=== PATIENT | female | born 1970 | race Caucasian/White ===

== ENCOUNTER → 2020-02-11 11:58 | Outpatient (CLI) | payer OTHER, SELFPAY ==
[2020-02-12] LABS: COVID19 Sendout Not Detected (Not Detect)
== END ==
PROVIDERS: Visit Provider Registered Nurse
DX: R68.89 Other general symptoms and signs (principal)
CPT/HCPCS: 87635

== ENCOUNTER 2020-03-18 05:17 | Emergency (ER) | payer OTHER, SELFPAY ==
[2020-03-18 05:23] VITALS: BP 141/81; PULSE 93; RESP 32; O2SAT 100
[2020-03-18 05:25] VITALS: BP 144/99; PULSE 93; RESP 25; TEMP 36.1; O2SAT 100; BMI 27.3
[2020-03-18 05:30] VITALS: BP 137/84; PULSE 98; RESP 21; O2SAT 100
--- NOTE | 2020-03-18 05:31 | DI.RAD.S_ITS ---
PROCEDURE: XR CHEST 1V INDICATIONS: STEMI TECHNIQUE: One view of the chest was acquired. COMPARISON: None. FINDINGS: Surgical changes and devices: None. Lungs and pleura: Lungs are slightly edematous. No pleural effusions or pneumothorax. Mediastinum: Mediastinal contours appear normal. Heart size is globally enlarged. Bones and chest wall: No suspicious bony lesions. Overlying soft tissues appear unremarkable. IMPRESSION: Slight pulmonary edema pattern with global cardiomegaly mild in overall severity. Dictated by: Nima Edge M.D. on 03/18/2020 at 8:12 Approved by: Nima Edge M.D. on 03/18/2020 at 8:12
[2020-03-18] MEDS: ASPIRIN 81 MG CHEW TAB 324 MG (05:35)
[2020-03-18 05:42] LABS: Hematocrit 44.5 % (36-46); Hemoglobin 15.2 g/dL (12.0-16.0); Mean Corpuscular HGB Conc 34.1 % (30-36)
[2020-03-18] MEDS: NITROGLYCERIN 0.4 MG SL TAB SL ×2 (05:44→05:45)
--- NOTE | 2020-03-18 05:44 | ED_ITS ---
HPI - Chest Pain General Chief Complaint: Chest Pain Stated Complaint: chest hurts difficulty breathing Time Seen by Provider: 03/18/20 05:23 History of Present Illness HPI narrative: 49-year-old woman with no prior significant medical history presents with acute onset chest pain starting at 5:00 a.m. waking her from sleep described as central chest radiating up both sides of her neck causing significant dyspnea and some epigastric pain as well. She had an episode of chest pain while she was shopping last night at about 10:00 p.m. that felt like ?a huge hot flash also associated with moderate dyspnea but went away spontaneously. She has been in her usual state of good health until the episode started. There has been no obvious Covid exposures, no fevers, cough, chills, dyspnea, exertional dyspnea, orthopnea, vomiting, nausea, diarrhea. Of note significant family history of heart disease in her mother's family. Her mother had heart issues in her early 50s and all of for greater than 10 siblings did as well. Patient is a smoker. Related Data Allergies Allergy/AdvReac Type Severity Reaction Status Date / Time cefaclor [CEFACLOR] Allergy Unknown go russel Verified 02/11/20 11:46 Review of Systems Review of Systems Narrative: Pertinent positive and negative findings as per HPI Remainder of review of systems is otherwise unremarkable for Constitutional: Fevers, chills, weakness ENT: No sore throat, neck pain, ear pain CV: Chest pain, palpitations, dyspnea on exertion Respiratory: Cough, wheeze, dyspnea GI: Nausea, vomiting, diarrhea, change in bowel habits, black or bloody stools : Dysuria, hematuria, flank pain MS: Muscle weakness, numbness, joint swelling or warmth Skin: Rashes, nonhealing lesions Neuro: Syncope, dizziness, tingling Psych: Depression, anxiety, suicidal ideation Patient History Social History Smoking Status: Current every day smoker Smoking Status: Current every day smoker Exam Narrative Exam Narrative: General: Healthy appearing, anxious, tachypneic, pale but no diaphoresis. Able to give a complete and coherent history, speaking in full sentences. Well-nourished well-developed HEENT: Moist mucous membranes, normal sclera with reactive pupils, Neck: No JVD, supple Respiratory: Lungs are clear to auscultation, no wheezing no rales no rhonchi. Full and symmetrical air movement Cardiac: Regular rate and rhythm no murmurs no bruits Abdomen: Soft nontender good bowel tones, no flank pain Skin: Warm and dry, no rashes Neurologic: Grossly neurologically intact with no obvious asymmetries or abnormalities Extremities: No trauma, well perfused Psych: Cooperative, appropriate insight and affect Initial Vital Signs Initial Vital Signs: Vital Signs Pulse Rate 93 H 03/18/20 05:23 Respiratory Rate 32 H 03/18/20 05:23 Blood Pressure 141/81 H 03/18/20 05:23 Pulse Oximetry 100 03/18/20 05:23 Course Orders Ordered: ED Orders 03/18/20 05:25 EKG-12 Lead Routine 03/18/20 05:30 Complete Blood Count AUTO DIFF Stat Comprehensive Metabolic Panel Stat Troponin & CK Cardiac Panel Stat 03/18/20 05:31 XR chest 1V Stat Discontinued Medications Aspirin (Aspirin Chew) 324 mg PO NOW ONE Stop: 03/18/20 05:32 Last Admin: 03/18/20 05:52 Dose: Not Given Documented by: NUNO Heparin Sodium (Porcine) (Heparin) 5,000 unit IV NOW ONE Stop: 03/18/20 05:36 Last Admin: 03/18/20 05:47 Dose: 5,000 unit Documented by: NUNO Heparin Sodium/Dextrose (Heparin Drip) 25,000 unit in 500 mls @ 15.785 mls/hr IV CONT LUCI; Protocol Sodium Chloride (Normal Saline 0.9%) 1,000 mls @ 1,000 mls/hr IV BOLUS ONE Stop: 03/18/20 06:57 Last Infusion: 03/18/20 05:55 Dose: 1,000 mls/hr Documented by: Admin: 03/18/20 05:50 Dose: 1,000 mls/hr Documented by: NUNO Metoprolol Tartrate (Lopressor) 5 mg IV Q5M LUCI Stop: 03/18/20 05:56 Last Admin: 03/18/20 05:58 Dose: Not Given Documented by: NUNO Nitroglycerin (Nitrostat) 0.4 mg SL [id number] PRN PRN Reason: Chest Pain Last Admin: 03/18/20 05:45 Dose: 0.4 mg Documented by: NUNO Vital Signs Vital signs: Vital Signs - 8 hr 03/18/20 05:23 03/18/20 05:25 03/18/20 05:30 Temperature 97.0 F L Pulse Rate 93 H 93 H 98 H Respiratory Rate 32 H 25 H 21 Blood Pressure 144/99 H Blood Pressure [Right Arm] 141/81 H 137/84 Pulse Oximetry 100 100 100 03/18/20 06:05 Temperature Pulse Rate 98 H Respiratory Rate 25 H Blood Pressure 126/86 Blood Pressure [Right Arm] Pulse Oximetry 100 MDM - Chest Pain Medical Records Data Attestation: I reviewed the patient's medical records. Lab Data Attestation: I reviewed the patient's lab results. Lab results narrative: Troponin elevated at 0.065 Covid negative Result diagrams: 03/18/20 05:30 03/18/20 05:30 Labs: Lab Results 03/18/20 03/18/20 03/18/20 Range/Units 05:30 05:30 05:45 WBC 10.4 (4.5-11.0) X10^3/uL RBC 5.04 (4.0-5.2) X10^6/uL Hgb 15.2 (12.0-16.0) g/dL Hct 44.5 (36-46) % MCV 88.3 (80-100) fL MCH 30.1 (26-34) PG MCHC 34.1 (30-36) % RDW 14.0 (11.6-14.8) % Plt Count 312 (150-400) X10^3/uL Neut % (Auto) 46.0 L (50-75) % Lymph % (Auto) 42.7 H (25-40) % [place] % (Auto) 7.4 (3-14) % Eos % (Auto) 2.5 (2-4) % Baso % (Auto) 1.4 (0-2) % Neut # (Auto) 4800 (2081-8006) /uL Lymph # (Auto) 4400 (0121-9449) /uL [place] # (Auto) 800 (0-900) /uL Eos # (Auto) 300 (0-450) /uL Baso # (Auto) 100 (0-100) /uL Sodium 138 (137-145) mmol/L Potassium 4.0 (3.4-5.1) mmol/L Chloride 106 (98-107) mmol/L Carbon Dioxide 22 (22-32) mmol/L BUN 17 (7-17) mg/dL Creatinine 0.89 (0.52-1.04) mg/dL Estimated GFR > 60.0 (>60) mL/min BUN/Creatinine Ratio 19.1 (6-22) Glucose 153 H (70-100) mg/dL Calcium 9.6 (8.4-10.2) mg/dL Total Bilirubin 0.7 (0.2-1.3) mg/dL AST 41 H (14-36) IU/L ALT 26 (<35) IU/L Alkaline Phosphatase 90 (38-126) U/L Total Creatine Kinase 54 (30-135) U/L CK-MB (CK-2) TNP CK-MB (CK-2) Rel Index TNP Troponin I 0.065 H (0.01-0.034) ng/mL Total Protein 8.3 H (6.3-8.2) g/dL Albumin 4.4 (3.5-5.0) g/dL Globulin 3.9 (1.7-4.1) g/dL Albumin/Globulin Ratio 1.1 (1.0-2.8) COVID-19 PCR Negative (Negative) Imaging Data Chest x-ray: Attestation: I personally reviewed and interpreted this imaging study as follows: My Impression: Cardiomegaly Normal mediastinum No pneumothorax No consolidated findings or infiltrates ECG Data Attestation: I personally reviewed and interpreted this ECG as follows: Interpretation: Sinus rhythm at a rate of 92 Normal axis partial LBBB ST-elevation in V1 V2 V3, flipped T-waves V5 V6 consistent with anteroseptal STEMI no prior for comparison MDM Narrative Medical decision making narrative: 49-year-old woman presents with acute chest pain, dyspnea, 8/10 chest pain. EKG is consistent with the anterior septal MN as is history and clinical presentation. 530 STEMI protocols are activated. 533 EMS is contacted. 534 [facility] is notified of transport. Initial nitro brings her pain from an 8 to a to and 2nd nitro completely alleviates her pain. Dyspnea is also completely alleviated. Rapid Covid test is done. Heparin bolus and heparin drip are initiated. 555 Patient is alert oriented and hemodynamically stable at time of transport 607 Care reviewed with accepting ER doc, Nahun, at [facility] Critical Care Time Critical Care Time Critical Care Time: Yes Total Critical Care Time: 32 Attestation: Critical care time is separate from other billable procedures. This critical care time includes consultation with family and other consulting doctors, review of records, and interpretation of data from labs, EKGs and imaging as well as managements of acute STEMI Discharge Plan Departure Patient Disposition: [facility] Clinical Impression: ST elevation myocardial infarction (STEMI) Qualifiers: Involved coronary artery: unspecified coronary artery Qualified Code(s): I21.3 - ST elevation (STEMI) myocardial infarction of unspecified site Discharge Date/Time: 03/18/20 06:05
[2020-03-18 05:47] LABS: Add Manual Diff / Slide Review NO; Alanine Aminotransferase 26 IU/L (<35); Albumin 4.4 g/dL (3.5-5.0); Albumin Globulin Ratio 1.1 (1.0-2.8); Alkaline Phosphatase 90 U/L (38-126); Aspartate Aminotransferase 41 IU/L (14-36); BUN Creatinine Ratio 19.1 (6-22); Basophils Absolute Auto 100 /uL (0-100); Basophils Percent Auto 1.4 % (0-2); Bilirubin Total 0.7 mg/dL (0.2-1.3); Blood Urea Nitrogen 17 mg/dL (7-17); Calcium 9.6 mg/dL (8.4-10.2); Carbon Dioxide 22 mmol/L (22-32); Chloride 106 mmol/L (98-107); Creatine Kinase 54 U/L (30-135); Eosinophils Absolute Auto 300 /uL (0-450); Eosinophils Percent Auto 2.5 % (2-4); Estimated Glomerular Filt Rate > 60.0 mL/min (>60); Globulin 3.9 g/dL (1.7-4.1); Glucose 153 mg/dL (70-100); HEMOLYSIS < 15 (0-50); Lymphocytes Absolute Auto 4400 /uL (1100-4500); Lymphocytes Percent Auto 42.7 % (25-40); Mean Corpuscular Hemoglobin 30.1 PG (26-34); Mean Corpuscular Volume 88.3 fL (80-100); Monocytes Absolute Auto 800 /uL (0-900); Monocytes Percent Auto 7.4 % (3-14); Neutrophils Absolute Auto 4800 /uL (1500-7000); Platelet Count 312 X10^3/uL (150-400); Red Blood Cell Count 5.04 X10^6/uL (4.0-5.2); Sodium 138 mmol/L (137-145); Total Protein 8.3 g/dL (6.3-8.2); White Blood Cell Count 10.4 X10^3/uL (4.5-11.0)
[2020-03-18] MEDS: HEPARIN 5,000 UNIT/ML VIAL 5000 UNIT IV (05:47)
[2020-03-18] MEDS: SODIUM CHLORIDE 0.9% 1,000 ML 1000 ML IV (05:50)
[2020-03-18] MEDS: HEPARIN DRIP 25,000 UNIT/500 ML IV.SOLN 20 UNIT IV (05:50)
[2020-03-18 05:59] LABS: Troponin I 0.065 ng/mL (0.01-0.034)
[2020-03-18 06:05] VITALS: BP 126/86; PULSE 98; RESP 25; O2SAT 100
[2020-03-18 06:52] LABS: COVID19 -Nasal RAPID Negative (Negative)
== END 2020-03-18 06:05 | disposition short-term general hospital (02) ==
PROVIDERS: Emergency Provider Emergency Medicine
DX: I21.3 ST elevation (STEMI) myocardial infarction of unspecified site (principal); I51.7 Cardiomegaly; R06.00 Dyspnea, unspecified; Z11.59 Encounter for screening for other viral diseases
CPT/HCPCS: 36415; 71045; 80053; 82550; 84484; 85025; 87635; 93005; 96374; 99285; 99291; J1644

== ENCOUNTER → 2020-08-09 11:25 | Outpatient (CLI) | payer OTHER, SELFPAY ==
[2020-08-09 12:16] LABS: Alanine Aminotransferase 19 IU/L (<35); Albumin 4.1 g/dL (3.5-5.0); Albumin Globulin Ratio 1.2 (1.0-2.8); Alkaline Phosphatase 79 U/L (38-126); Aspartate Aminotransferase 27 IU/L (14-36); BUN Creatinine Ratio 28.4 (6-22); Bilirubin Total 0.3 mg/dL (0.2-1.3); Blood Urea Nitrogen 19 mg/dL (7-17); Calcium 9.2 mg/dL (8.4-10.2); Carbon Dioxide 25 mmol/L (22-32); Chloride 108 mmol/L (98-107); Cholesterol 160 mg/dL (140-199); Estimated Glomerular Filt Rate > 60.0 mL/min (>60); Globulin 3.4 g/dL (1.7-4.1); Glucose 91 mg/dL (70-100); HDL Cholesterol 51 mg/dL (40-60); HEMOLYSIS < 15 (0-50); LDL Cholesterol Calculated 79 mg/dL (<100); Potassium 4.6 mmol/L (3.4-5.1); Sodium 138 mmol/L (137-145); Total Protein 7.5 g/dL (6.3-8.2); Triglycerides 149 mg/dL (35-150)
[2020-08-09 12:25] LABS: Hemoglobin A1C% w Est Avg Glu 5.1 % (4.0-6.0)
== END ==
PROVIDERS: PCP Family Medicine; Referring Provider Family Medicine; Visit Provider Family Medicine
DX: R73.09 Other abnormal glucose (principal); Z13.220 Encounter for screening for lipoid disorders; E78.5 Hyperlipidemia, unspecified; I25.10 Atherosclerotic heart disease of native coronary artery without angina pectoris
CPT/HCPCS: 36415; 80053; 80061; 83036

== ENCOUNTER → 2021-11-25 10:20 | Outpatient (CLI) | payer OTHER, SELFPAY ==
[2021-11-25 11:00] LABS: Add Manual Diff / Slide Review NO; Basophils Absolute Auto 100 /uL (0-100); Basophils Percent Auto 1.2 % (0-2); Eosinophils Absolute Auto 200 /uL (0-450); Eosinophils Percent Auto 2.3 % (2-4); Hematocrit 43.9 % (36-46); Hemoglobin 14.5 g/dL (12.0-16.0); Lymphocytes Absolute Auto 3200 /uL (1100-4500); Lymphocytes Percent Auto 33.7 % (25-40); Mean Corpuscular Hemoglobin 34.3 PG (26-34); Mean Corpuscular Volume 103.8 fL (80-100); Monocytes Absolute Auto 1100 /uL (0-900); Monocytes Percent Auto 11.4 % (3-14); Neutrophils Absolute Auto 4800 /uL (1500-7000); Neutrophils Percent Auto 51.4 % (50-75); Platelet Count 393 X10^3/uL (150-400); Red Blood Cell Count 4.23 X10^6/uL (4.0-5.2); Red Cell Distribution Width 13.1 % (11.6-14.8); White Blood Cell Count 9.4 X10^3/uL (4.5-11.0)
[2021-11-25 11:16] LABS: Alanine Aminotransferase 21 IU/L (<35); Albumin 4.2 g/dL (3.5-5.0); Albumin Globulin Ratio 1.2 (1.0-2.8); Alkaline Phosphatase 86 U/L (38-126); Aspartate Aminotransferase 51 IU/L (14-36); BUN Creatinine Ratio 27.7 (6-22); Bilirubin Total 0.5 mg/dL (0.2-1.3); Blood Urea Nitrogen 18 mg/dL (7-17); Calcium 9.5 mg/dL (8.4-10.2); Carbon Dioxide 22 mmol/L (22-32); Chloride 110 mmol/L (98-107); Cholesterol 136 mg/dL (140-199); Estimated Glomerular Filt Rate > 60.0 mL/min (>60); Globulin 3.5 g/dL (1.7-4.1); Glucose 95 mg/dL (70-100); HDL Cholesterol 47 mg/dL (40-60); HEMOLYSIS 27 (0-50); LDL Cholesterol Calculated 56 mg/dL (<100); Magnesium 1.7 mg/dL (1.6-2.3); Potassium 4.4 mmol/L (3.4-5.1); Sodium 138 mmol/L (137-145); Total Protein 7.7 g/dL (6.3-8.2); Triglycerides 164 mg/dL (35-150)
[2021-11-25 11:24] LABS: NT-proBNP (BNP-Adult 18+) 992 pg/mL (<125)
[2021-11-25 11:47] LABS: Thyroid Stimulating Hormone 2.37 uIU/mL (0.47-4.68)
== END ==
PROVIDERS: PCP Family Medicine; Referring Provider Internal Medicine Cardiovascular Disease; Visit Provider Internal Medicine Cardiovascular Disease
DX: I50.22 Chronic systolic (congestive) heart failure (principal); E78.5 Hyperlipidemia, unspecified; I44.7 Left bundle-branch block, unspecified; I42.0 Dilated cardiomyopathy; Z95.5 Presence of coronary angioplasty implant and graft
CPT/HCPCS: 36415; 80053; 80061; 83735; 83880; 84443; 85025

== ENCOUNTER → 2021-11-30 11:01 | Outpatient (CLI) | payer OTHER, MEDICAID, SELFPAY ==
[2021-11-30 12:13] LABS: COVID19 -Nasal RAPID Negative (Negative)
== END ==
PROVIDERS: PCP Family Medicine; Referring Provider Internal Medicine; Visit Provider Internal Medicine
DX: Z20.822 Contact with and (suspected) exposure to COVID-19 (principal)
CPT/HCPCS: 87635; C9803

== ENCOUNTER → 2021-12-01 10:42 | Outpatient (CLI) | payer OTHER, MEDICAID, SELFPAY ==
--- NOTE | 2021-12-07 07:54 | PM.PFT.1 ---
Pulmonary Function Test Referral & Results Date Patient Seen: 12/01/21 Requesting provider: Gerard Murillo Results: The spirometry demonstrates an FVC of 2.19 L which is 69% of predicted. The FEV1 was measured at 2.18 L which is 87% of predicted. The FEV1/FVC ratio was 100 which is 124% of predicted. Following the administration of bronchodilator there was no notable change Lung volumes show an SVC of 2.66 L which is 91% of predicted. The diffusing capacity was measured at 14.78 which is 73% of predicted. No hemoglobin value was provided, so no correction for potential anemia could be made, if appropriate. The maximum voluntary ventilation was normal Interpretation: This study demonstrates the possibility of very mild obstructive lung disease based on minimal reduction FEV1 although FEV1/FVC ratio is preserved. Lung volumes are normal. Spirometry in this study could also be considered normal There is a mild reduction diffusing capacity suggesting the presence of disease the capillary alveolar level, unless patient is anemic
== END ==
PROVIDERS: PCP Family Medicine; Referring Provider Internal Medicine Cardiovascular Disease; Visit Provider Internal Medicine Cardiovascular Disease
DX: I50.22 Chronic systolic (congestive) heart failure (principal)
CPT/HCPCS: 94060; 94726; 94729

== ENCOUNTER → 2021-12-20 14:39 | Outpatient (CLI) | payer OTHER, MEDICAID, SELFPAY ==
--- NOTE | 2021-12-20 | DI.ECHO.S_ITS ---
[facility]---------+ [facility] +---------+ : : [address] [place] : : : : [id number] : : : : Phone: [phone]+ Echocardiogram Report + + :Name: SUSANNAH ORO Study Date: 12/20/2021 Height: 61 in : :[facility] ReadingLocation: Weight: 162 lb : : Gender: Female BSA: 1.7 m2 : :: 1970 Age: 51 yrs BP: 131/88 mmHg: :Reason For Study: SYSTOLIC HEART FAILURE : :Ordering Physician: ALAN, : :SWETA Performed By: Sania Fink : :Referring: MISSY PHILLIPS : + + Interpretation Summary The left ventricle is mild-moderately dilated. The ejection fraction is estimated to be 20-25%. Previous LV ejection fraction 10 to 15%. The right ventricular cavity is small. Visually RV function appears to be preserved. This has improved. There is mild aortic regurgitation. Compared to the prior echo study, there has been no change in the severity of aortic regurgitation. The IVC is of normal diameter and collapses greater than 50% with a sniff. This suggests a low right atrial pressure of 3 mm Hg. Previous right atrial pressure about 8 mmHg. Moderate atherosclerotic plaque at the junction of aortic arch and descending aorta. Artifact seen in the aortic arch. Procedure: A two-dimensional transthoracic echocardiogram with color flow and Doppler was performed. The study quality was technically adequate. Comparison is made with the echocardiogram of 03/19/2020. The heart rate ranged between 79-103 bpm during the study. The patient was in normal sinus rhythm during the exam. The patient had a bundle branch block rhythm during the exam. Left Ventricle: There is normal left ventricular wall thickness. The left ventricle is mild-moderately dilated. The estimated left ventricular end diastolic volume is 143 ml. There is no thrombus. The ejection fraction is estimated to be 20-25%. Septal motion is consistent with conduction abnormality. Moderate to severe global hypokinesis with akinesis of inferior wall. Inferior septum has some dyskinesis. Basal anterolateral segments has relatively better contractility. Compared to the prior exam, the left ventricular wall motion has not changed. E/E' med: 19.0. Right Ventricle: The right ventricular cavity is small. Visually RV function appears to be preserved. This has improved. Atria: The left atrial size is normal. The left atrium has mildly decreased in size since the prior echo exam. Right atrial size is normal. There is no Doppler evidence for an interatrial shunt. Mitral Valve: There is mild mitral annular calcification. There is mild calcification extending into the subvalvular apparatus. There is trace mitral regurgitation. Aortic Valve: The aortic valve is trileaflet. The aortic valve opens well. There is no aortic valve stenosis. There is mild aortic regurgitation. Compared to the prior echo study, there has been no change in the severity of aortic regurgitation. Tricuspid Valve: The tricuspid valve is normal. There is trace tricuspid regurgitation. Pulmonary artery pressures cannot be estimated because of the lack of a measurable TR jet velocity. Pulmonic Valve: There is mild thickening of the pulmonic valve. The pulmonic valve is not well visualized. There is no pulmonic valvular regurgitation. Great Vessels: The aortic root is normal size. The dimensions of the ascending aorta are normal. Moderate atherosclerotic plaque at the junction of aortic arch and descending aorta. Artifact seen in the aortic arch. The IVC is of normal diameter and collapses greater than 50% with a sniff. This suggests a low right atrial pressure of 3 mm Hg. Pericardium/ Pleura There is no pericardial effusion. There is no pleural effusion. MMode/2D Measurements & Calculations LVIDd: 5.5 cm LVOT diam: 2.0 cm LVIDs: 5.0 cm Ao root diam: 3.1 cm FS: 9.8 % asc Aorta Diam: 2.8 cm EPSS: 2.0 cm Ao Arch Diam (Prox Trans): 2.7 cm IVSd: 1.0 cm LVPWd: 0.92 cm LV vicente. diameter/BSA (cm/m^2): 3.2 LV sys. diameter/BSA (cm/m^2): 2.9 LA A2 area: 13.7 cm2 RA long axis: 4.2 cm LA A4 area: 14.3 cm2 RA area: 9.9 cm2 LA length (vol): 4.4 cm RA vol: 20.0 ml LA vol: 37.3 ml RA : 11.6 ml/m2 LA vol index: 21.6 ml/m2 IVC diam: 1.0 cm RVD1 (basal): 2.0 cm RVD2 (mid): 1.9 cm TAPSE: 1.5 cm Doppler Measurements & Calculations Ao V2 max: 140.2 cm/sec LVOT Max Rinku: 80.5 cm/sec Ao V2 mean: 95.0 cm/sec LV V1 max P.6 mmHg Ao max P.9 mmHg LV V1 VTI: 10.9 cm Ao mean P.2 mmHg LAW(I,D): 1.8 cm2 Ao V2 VTI: 19.0 cm LAW(V,D): 1.8 cm2 sev ratio: 0.58 LAW indexed to BSA (cm^2/m^2): 1.0 MV E max rinku: 141.0 cm/sec PA V2 max: 90.4 cm/sec Med Peak E' Rinku: 7.4 cm/sec PA V2 mean: 61.6 cm/sec E/E' med: 19.0 PA mean P.8 mmHg Lat Peak E' Rinku: 9.1 cm/sec PA pr(Accel): 27.6 mmHg E/E' lat: 15.5 E/e' average: 17.3 MV dec time: 0.06 sec MVA(VTI): 1.2 cm2 MV V2 mean: 74.2 cm/sec SV(LVOT): 33.4 ml MV mean P.4 mmHg MV V2 VTI: 26.9 cm Reading Physician:05:37 PM
== END ==
PROVIDERS: PCP Family Medicine; Referring Provider Internal Medicine Cardiovascular Disease; Visit Provider Internal Medicine Cardiovascular Disease
DX: I35.1 Nonrheumatic aortic (valve) insufficiency (principal); I70.0 Atherosclerosis of aorta; I50.22 Chronic systolic (congestive) heart failure
CPT/HCPCS: 93306

== ENCOUNTER 2021-12-28 17:27 | Emergency (ER) | payer OTHER, MEDICAID, SELFPAY ==
[2021-12-28] VITALS (19 sets, daily range): BP systolic 86–127; BP diastolic 55–84; PULSE 74–98; RESP 13–35; TEMP 36.6; O2SAT 94–98
--- NOTE | 2021-12-28 17:41 | DI.RAD.S_ITS ---
PROCEDURE: XR CHEST 1V INDICATIONS: chest pain TECHNIQUE: One view of the chest was acquired. COMPARISON: [facility], CR, XR CHEST 1V, 03/18/2020, 5:38. FINDINGS: Surgical changes and devices: None. Lungs and pleura: Lungs are clear. No pleural effusions or pneumothorax. Mediastinum: Mediastinal contours appear normal. Heart size is normal. Bones and chest wall: No suspicious bony lesions. Overlying soft tissues appear unremarkable. IMPRESSION: No acute cardiopulmonary abnormalities or focal airspace disease. Dictated by: Robert Ly M.D. on 12/28/2021 at 17:24 Approved by: Robert Ly M.D. on 12/28/2021 at 17:25
[2021-12-28 18:02] LABS: Add Manual Diff / Slide Review NO; Basophils Absolute Auto 100 /uL (0-100); Eosinophils Absolute Auto 100 /uL (0-450); Eosinophils Percent Auto 1.2 % (2-4); Hematocrit 42.7 % (36-46); Hemoglobin 14.6 g/dL (12.0-16.0); Lymphocytes Absolute Auto 2900 /uL (1100-4500); Lymphocytes Percent Auto 32.5 % (25-40); Mean Corpuscular HGB Conc 34.2 % (30-36); Mean Corpuscular Hemoglobin 34.5 PG (26-34); Mean Corpuscular Volume 100.9 fL (80-100); Monocytes Absolute Auto 1000 /uL (0-900); Monocytes Percent Auto 10.7 % (3-14); Neutrophils Absolute Auto 4900 /uL (1500-7000); Neutrophils Percent Auto 54.6 % (50-75); Platelet Count 428 X10^3/uL (150-400); Red Blood Cell Count 4.24 X10^6/uL (4.0-5.2); Red Cell Distribution Width 13.2 % (11.6-14.8)
[2021-12-28 18:06] LABS: Prothrombin Time 11.8 SECONDS (10.1-12.7)
[2021-12-28 18:09] LABS: PTT Partial Thromboplastin Tim 35 SECONDS (26.4-36.2)
[2021-12-28 18:10] LABS: Alanine Aminotransferase 26 IU/L (<35); Albumin 4.6 g/dL (3.5-5.0); Albumin Globulin Ratio 1.1 (1.0-2.8); Alkaline Phosphatase 78 U/L (38-126); Aspartate Aminotransferase 34 IU/L (14-36); BUN Creatinine Ratio 22.2 (6-22); Bilirubin Total 0.6 mg/dL (0.2-1.3); Blood Urea Nitrogen 22 mg/dL (7-17); Calcium 10.1 mg/dL (8.4-10.2); Carbon Dioxide 21 mmol/L (22-32); Chloride 106 mmol/L (98-107); Creatine Kinase 62 U/L (30-135); Estimated Glomerular Filt Rate 58.9 mL/min (>60); Globulin 4.2 g/dL (1.7-4.1); Glucose 137 mg/dL (70-100); HEMOLYSIS 38 (0-50); Lipase 133 U/L (23-300); Magnesium 1.9 mg/dL (1.6-2.3); Potassium 3.9 mmol/L (3.4-5.1); Sodium 139 mmol/L (137-145); Total Protein 8.8 g/dL (6.3-8.2)
[2021-12-28 18:22] LABS: NT-proBNP (BNP-Adult 18+) 1690 pg/mL (<125); Troponin I 0.016 ng/mL (0.01-0.034)
--- NOTE | 2021-12-28 19:11 | ED.CHESTPAIN ---
HPI - Chest Pain General Chief Complaint: Chest Pain Stated Complaint: SOB Chest Pain 3X Nitro, Some relief Time Seen by Provider: 12/28/21 19:04 Source: patient Mode of arrival: Ambulatory History of Present Illness HPI narrative: Patient here with this epigastric abdominal discomfort was sweating diaphoresis dyspnea at at rest. Relieved with nitroglycerin. Patient took home nitro. History of stent 2 years ago see [facility] cardiology. Recently had echocardiogram a week ago showing 20 25% ejection fraction please see report below. Scheduled for pacemaker end of the month. No stress test since 2019. Currently chest pain-free. Similar symptoms when she had stent 2 years ago. Never had chest pain at that time. [address] [address] Echocardiography Report Signed Patient: Susannah Walden MR#: [id number] : 1970 Acct:[id number] Age/Sex: 51 / F Date of Service: 12/20/21 Loc: ECHO Accession Number: [id number] ?? Procedure: EC echo doppler complete Ordering Provider: Missy Phillips MD ? [place] +---------+? Hospital? +---------+ : ? :? [address] [place] [address]. ? : ? : : ? :? [place], [place] ? : ? : : ? :? [address] ? : ? : : ? : ? Phone: [phone]? : ? : [phone]? [phone]? +---------+ ? Echocardiogram Report + + :Name: SUSANNAH WALDEN? Study Date: 12/20/2021 ? Height: 61 in? : :Hospital ? ? ReadingLocation: ? Weight: 162 lb : : ? Gender: Female ? BSA: 1.7 m2? ? : :: 1970? Age: 51 yrs? BP: 131/88 mmHg: :Reason For Study: SYSTOLIC HEART FAILURE ? : :Ordering Physician: ALAN, ? : :SWETA ? Performed By: Sania Fink? : :Referring: MISSY PHILLIPS? : + + Interpretation Summary The left ventricle is mild-moderately dilated. The ejection fraction is estimated to be 20-25%. Previous LV ejection fraction 10 to 15%. ? The right ventricular cavity is small. Visually RV function appears to be preserved. This has improved. ? There is mild aortic regurgitation. Compared to the prior echo study, there has been no change in the severity of aortic regurgitation. ? The IVC is of normal diameter and collapses greater than 50% with a sniff. This suggests a low right atrial pressure of 3 mm Hg. Previous right atrial pressure about 8 mmHg. ? Moderate atherosclerotic plaque at the junction of aortic arch and descending aorta. Artifact seen in the aortic arch. ? Procedure: ? A two-dimensional transthoracic echocardiogram with color flow and Doppler was performed. The study quality was technically adequate. Comparison is made with the echocardiogram of 03/19/2020. The heart rate ranged between 79-103 bpm during the study. The patient was in normal sinus rhythm during the exam. The patient had a bundle branch block rhythm during the exam. Left Ventricle: ? There is normal left ventricular wall thickness. The left ventricle is mild-moderately dilated. The estimated left ventricular end diastolic volume is 143 ml. There is no thrombus. The ejection fraction is estimated to be 20-25%. Septal motion is consistent with conduction abnormality. Moderate to severe global hypokinesis with akinesis of inferior wall. Inferior septum has some dyskinesis. Basal anterolateral segments has relatively better contractility. Compared to the prior exam, the left ventricular wall motion has not changed. E/E' med: 19.0. Right Ventricle: ? The right ventricular cavity is small. Visually RV function appears to be preserved. This has improved. Atria: ? The left atrial size is normal. The left atrium has mildly decreased in size since the prior echo exam. Right atrial size is normal. There is no Doppler evidence for an interatrial shunt. Mitral Valve: ? There is mild mitral annular calcification. There is mild calcification extending into the subvalvular apparatus. There is trace mitral regurgitation. Aortic Valve: ? The aortic valve is trileaflet. The aortic valve opens well. There is no aortic valve stenosis. There is mild aortic regurgitation. Compared to the prior echo study, there has been no change in the severity of aortic regurgitation. Tricuspid Valve: ? The tricuspid valve is normal. There is trace tricuspid regurgitation. Pulmonary artery pressures cannot be estimated because of the lack of a measurable TR jet velocity. Pulmonic Valve: ? There is mild thickening of the pulmonic valve. The pulmonic valve is not well visualized. There is no pulmonic valvular regurgitation. Great Vessels: ? The aortic root is normal size. The dimensions of the ascending aorta are normal. Moderate atherosclerotic plaque at the junction of aortic arch and descending aorta. Artifact seen in the aortic arch. The IVC is of normal diameter and collapses greater than 50% with a sniff. This suggests a low right atrial pressure of 3 mm Hg. Pericardium/ Pleura ? There is no pericardial effusion. There is no pleural effusion. ? MMode/2D Measurements & Calculations LVIDd: 5.5 cm? LVOT diam: 2.0 cm LVIDs: 5.0 cm? Ao root diam: 3.1 cm FS: 9.8 %? asc Aorta Diam: 2.8 cm EPSS: 2.0 cm ? Ao Arch Diam (Prox Trans): 2.7 cm IVSd: 1.0 cm LVPWd: 0.92 cm LV vicente. diameter/BSA (cm/m^2): 3.2 LV sys. diameter/BSA (cm/m^2): 2.9 ? LA A2 area: 13.7 cm2 ? RA long axis: 4.2 cm LA A4 area: 14.3 cm2 ? RA area: 9.9 cm2 LA length (vol): 4.4 cm? RA vol: 20.0 ml LA vol: 37.3 ml? RA : 11.6 ml/m2 LA vol index: 21.6 ml/m2 ? IVC diam: 1.0 cm ? RVD1 (basal): 2.0 cm RVD2 (mid): 1.9 cm TAPSE: 1.5 cm ? Doppler Measurements & Calculations Ao V2 max: 140.2 cm/sec ? LVOT Max Rinku: 80.5 cm/sec Ao V2 mean: 95.0 cm/sec ? LV V1 max P.6 mmHg Ao max P.9 mmHg ? LV V1 VTI: 10.9 cm Ao mean P.2 mmHg? LAW(I,D): 1.8 cm2 Ao V2 VTI: 19.0 cm? ALW(V,D): 1.8 cm2 ? sev ratio: 0.58 ? LAW indexed to BSA (cm^2/m^2): 1.0 ? MV E max rinku: 141.0 cm/sec? PA V2 max: 90.4 cm/sec Med Peak E' Rinku: 7.4 cm/sec ? ? ? PA V2 mean: 61.6 cm/sec E/E' med: 19.0? PA mean P.8 mmHg Lat Peak E' Rinku: 9.1 cm/sec ? ? ? PA pr(Accel): 27.6 mmHg E/E' lat: 15.5 E/e' average: 17.3 MV dec time: 0.06 sec MVA(VTI): 1.2 cm2 ? MV V2 mean: 74.2 cm/sec ? SV(LVOT): 33.4 ml MV mean P.4 mmHg MV V2 VTI: 26.9 cm ? Related Data Home Medications Medication Instructions Recorded Confirmed aspirin 81 mg chewable tablet 1 tab PO QAM 12/28/21 12/28/21 atorvastatin 80 mg tablet 80 mg PO BEDTIME 12/28/21 12/28/21 clopidogrel 75 mg tablet 75 mg PO QAM 12/28/21 12/28/21 metoprolol succinate 25 mg 25 mg PO QAM 12/28/21 12/28/21 tablet,extended release 24 hr sacubitril 24 mg-valsartan 26 mg 1 tab PO BID 12/28/21 12/28/21 tablet (Entresto) spironolactone 25 mg tablet 25 mg PO QAM 12/28/21 12/28/21 Previous Rx's Medication Instructions Recorded furosemide 20 mg tablet 20 mg PO QAM #90 tab 12/09/21 nitroglycerin 0.4 mg sublingual 0.4 mg BUCCAL Q5-15M PRN #30 tab 12/09/21 tablet Allergies Allergy/AdvReac Type Severity Reaction Status Date / Time cefaclor [CEFACLOR] Allergy Unknown ganga goode Verified 12/28/21 21:12 Review of Systems Review of Systems Narrative: GENERAL: Denies chills, fatigue, malaise, fever, positive for sweats. HEENT: Denies sinus pain, ear pain, sore throat RESPIRATORY: Denies dyspnea, cough CARDIOVASCULAR: Denies chest pain, palpitations GASTROINTESTINAL: Positive for nausea, negative for vomiting, positive for abdominal pain : Denies dysuria, frequency, hematuria MUSCULOSKELETAL: denies muscle or bony pain SKIN: Denies rash, skin lesions NEUROLOGIC: Denies weakness, numbness, positive dizziness ROS Unobtainable: All systems reviewed & are unremarkable except as noted in HPI and below Patient History Medical History Anxiety (~2004) CAD (coronary artery disease) (~2019) Depression (~2004) Fibromyalgia (~1999) History of bipolar disorder (~2009) Hyperglycemia Hyperlipidemia MRSA (methicillin resistant Staphylococcus aureus) (~2009) Personality disorder (~2009) Substance abuse (~2007) Surgical History Anesthesia History of cholecystectomy History of coronary artery stent placement (~2019) Family History Mother History of heart disease Hyperlipidemia Hypertension Social History Smoking Status: Current every day smoker Tobacco: How many years used: 32 quit status: considering quitting alcohol intake: current substance use type: former substance user, marijuana, crack/cocaine, amphetamines, hallucinogens, sedatives, opiates, painkillers and methamphetamine Smoking Status: Current every day smoker Substance Use Type: does not use Exam Narrative Exam Narrative: GENERAL: in no distress, not toxic not dyspneic HEAD: Normocephalic. EYES: Pupils equal round No scleral icterus. ENT: Mucous membranes moist. NECK: Trachea midline. CARDIOVASCULAR: Regular rate and rhythm without murmurs RESPIRATORY: Clear to auscultation. Breath sounds equal bilaterally. No wheezes, rales, or rhonchi. GASTROINTESTINAL: Abdomen soft, non-tender EXTREMITIES: No gross deformities. BACK: No flank tenderness. NEURO: AOx4. SKIN: Warm and dry PSYCH: Not anxious, is cooperative Initial Vital Signs Initial Vital Signs: Vital Signs Temperature 97.9 F 12/28/21 17:32 Pulse Rate 98 H 12/28/21 17:32 Respiratory Rate 20 03/02/22 17:32 Blood Pressure 98/56 L 12/28/21 17:32 Pulse Oximetry 98 12/28/21 17:32 Course Course Course Narrative: No new issues during her stay Orders Ordered: ED Orders 12/29/21 01:31 PTT [Partial Thromboplastin Time] Stat Discontinued Medications Aspirin (Aspirin Ec 81 Mg Tablet) 81 mg PO DAILY [facility] Atorvastatin Calcium (Atorvastatin 20 Mg Tablet) 80 mg PO BEDTIME [facility] Last Admin: 12/28/21 22:17 Dose: 80 mg Documented by: MARYLU Clopidogrel Bisulfate (Clopidogrel 75 Mg Tablet) 300 mg PO NOW ONE Stop: 12/28/21 19:23 Last Admin: 12/28/21 19:31 Dose: 300 mg Documented by: MARYLU Clopidogrel Bisulfate (Clopidogrel 75 Mg Tablet) 75 mg PO DAILY [facility] Furosemide (Furosemide 20 Mg Tablet) 20 mg PO DAILY [facility] Heparin Sodium (Porcine) (Heparin 5,000 Unit/Ml Vial) 5,800 unit 80 unit/kg (5800 unit) IV NOW ONE Stop: 12/28/21 19:23 Last Admin: 12/28/21 19:32 Dose: 5,800 unit Documented by: MARYLU Heparin Sodium/Dextrose (Heparin Drip) 25,000 unit in 500 mls @ 17.418 mls/hr IV CONT [facility]; Protocol Last Titration: 12/29/21 04:08 Dose: 0 units/kg/hr, 0 mls/hr Documented by: Titration: 12/29/21 02:05 Dose: 0 units/kg/hr, 0 mls/hr Documented by: Admin: 12/28/21 19:42 Dose: 12 units/kg/hr, 17.418 mls/hr Documented by: MARYLU Metoprolol Succinate (Metoprolol Er 25 Mg Tablet) 25 mg PO DAILY [facility] Spironolactone (Spironolactone 25 Mg Tablet) 25 mg PO DAILY [facility] Reevaluation(s) Reevaluation #1: Patient agrees and understands reason for transfer. For continuity of care. And for possible heart catheterization Consultations Consultation #1: Spoke with Dr. Epperson, cardiology, start non-STEMI protocol. Start heparin and Plavix. He is going to call the health small appliance assembly supervisor at [facility] to try get her transferred over there. Time: 19:21 Consultation #2: Spoke with [facility], hospitalist, Dr. Luke, will admit/accept patient Time: 01:00 Vital Signs Vital signs: Vital Signs - 8 hr 12/28/21 17:32 12/28/21 17:50 12/28/21 18:00 Temperature 97.9 F Pulse Rate 98 H 91 H 89 Respiratory Rate 20 19 Blood Pressure 98/56 L Pulse Oximetry 98 96 96 12/28/21 18:01 12/28/21 18:03 12/28/21 18:16 Temperature Pulse Rate 97 H 86 95 H Respiratory Rate 32 H 35 H Blood Pressure 86/63 L 96/66 109/55 L Pulse Oximetry 97 97 98 12/28/21 18:30 12/28/21 18:45 12/28/21 19:00 Temperature Pulse Rate 78 74 74 Respiratory Rate 17 13 18 Blood Pressure 105/69 110/73 119/78 Pulse Oximetry 96 96 96 12/28/21 19:15 12/28/21 19:30 12/28/21 20:00 Temperature Pulse Rate 76 80 77 Respiratory Rate 16 26 H 21 Blood Pressure 124/82 127/84 Pulse Oximetry 96 97 97 12/28/21 20:30 Temperature Pulse Rate 86 Respiratory Rate 20 Blood Pressure Pulse Oximetry 96 MDM - Chest Pain Differential Diagnosis Differential diagnosis: Likely stable angina, unstable angina pectoris, atypical chest pain, st elevation myocardial infarction and chest pain Lab Data Result diagrams: 12/28/21 17:41 12/28/21 17:41 Labs: Lab Results 12/28/21 12/28/21 12/28/21 Range/Units 17:41 17:41 17:41 WBC 9.0 (4.5-11.0) X10^3/uL RBC 4.24 (4.0-5.2) X10^6/uL Hgb 14.6 (12.0-16.0) g/dL Hct 42.7 (36-46) % MCV 100.9 H (80-100) fL MCH 34.5 H (26-34) PG MCHC 34.2 (30-36) % RDW 13.2 (11.6-14.8) % Plt Count 428 H (150-400) X10^3/uL Neut % (Auto) 54.6 (50-75) % Lymph % (Auto) 32.5 (25-40) % Barnwell % (Auto) 10.7 (3-14) % Eos % (Auto) 1.2 L (2-4) % Baso % (Auto) 1.0 (0-2) % Neut # (Auto) 4900 (3497-2677) /uL Lymph # (Auto) 2900 (2082-5475) /uL Barnwell # (Auto) 1000 H (0-900) /uL Eos # (Auto) 100 (0-450) /uL Baso # (Auto) 100 (0-100) /uL PT 11.8 (10.1-12.7) SECONDS INR 1.0 (0.9-1.3) APTT 35 (26.4-36.2) SECONDS Sodium 139 (137-145) mmol/L Potassium 3.9 (3.4-5.1) mmol/L Chloride 106 (98-107) mmol/L Carbon Dioxide 21 L (22-32) mmol/L BUN 22 H (7-17) mg/dL Creatinine 0.99 (0.52-1.04) mg/dL Estimated GFR 58.9 L (>60) mL/min BUN/Creatinine Ratio 22.2 H (6-22) Glucose 137 H (70-100) mg/dL Calcium 10.1 (8.4-10.2) mg/dL Magnesium 1.9 (1.6-2.3) mg/dL Total Bilirubin 0.6 (0.2-1.3) mg/dL AST 34 (14-36) IU/L ALT 26 (<35) IU/L Alkaline Phosphatase 78 (38-126) U/L Total Creatine Kinase 62 (30-135) U/L CK-MB (CK-2) TNP CK-MB (CK-2) Rel Index TNP Troponin I 0.016 (0.01-0.034) ng/mL NT-Pro-B Natriuret Pep 1690 H (<125) pg/mL Total Protein 8.8 H (6.3-8.2) g/dL Albumin 4.6 (3.5-5.0) g/dL Globulin 4.2 H (1.7-4.1) g/dL Albumin/Globulin Ratio 1.1 (1.0-2.8) Lipase 133 (23-300) U/L SARS-CoV-2 (PCR) (Negative) 12/28/21 12/28/21 12/29/21 Range/Units 18:52 20:18 01:31 WBC (4.5-11.0) X10^3/uL RBC (4.0-5.2) X10^6/uL Hgb (12.0-16.0) g/dL Hct (36-46) % MCV (80-100) fL MCH (26-34) PG MCHC (30-36) % RDW (11.6-14.8) % Plt Count (150-400) X10^3/uL Neut % (Auto) (50-75) % Lymph % (Auto) (25-40) % Barnwell % (Auto) (3-14) % Eos % (Auto) (2-4) % Baso % (Auto) (0-2) % Neut # (Auto) (7126-6867) /uL Lymph # (Auto) (1203-4536) /uL Barnwell # (Auto) (0-900) /uL Eos # (Auto) (0-450) /uL Baso # (Auto) (0-100) /uL PT (10.1-12.7) SECONDS INR (0.9-1.3) APTT 214 H* D (26.4-36.2) SECONDS Sodium (137-145) mmol/L Potassium (3.4-5.1) mmol/L Chloride (98-107) mmol/L Carbon Dioxide (22-32) mmol/L BUN (7-17) mg/dL Creatinine (0.52-1.04) mg/dL Estimated GFR (>60) mL/min BUN/Creatinine Ratio (6-22) Glucose (70-100) mg/dL Calcium (8.4-10.2) mg/dL Magnesium (1.6-2.3) mg/dL Total Bilirubin (0.2-1.3) mg/dL AST (14-36) IU/L ALT (<35) IU/L Alkaline Phosphatase (38-126) U/L Total Creatine Kinase (30-135) U/L CK-MB (CK-2) CK-MB (CK-2) Rel Index Troponin I < 0.012 (0.01-0.034) ng/mL NT-Pro-B Natriuret Pep (<125) pg/mL Total Protein (6.3-8.2) g/dL Albumin (3.5-5.0) g/dL Globulin (1.7-4.1) g/dL Albumin/Globulin Ratio (1.0-2.8) Lipase (23-300) U/L SARS-CoV-2 (PCR) Negative (Negative) Imaging Data Chest x-ray: Radiologist's Impression: [address] [address] XRay Report Signed Patient: Susannah Walden MR#: [id number] : 1970 Acct:[id number] Age/Sex: 51 / F Date of Service: 12/28/21 Loc: ED Accession Number: [id number] ?? Procedure: XR chest 1V Ordering Provider: Hermelinda Potter D.O. PROCEDURE:? XR CHEST 1V ? INDICATIONS:? chest pain ? TECHNIQUE:? One view of the chest was acquired.? ? COMPARISON:? [facility], , XR CHEST 1V, 03/18/2020, 5:38. ? FINDINGS:? ? Surgical changes and devices:? None.? ? Lungs and pleura:? Lungs are clear.? No pleural effusions or pneumothorax.? ? Mediastinum:? Mediastinal contours appear normal.? Heart size is normal.? ? Bones and chest wall:? No suspicious bony lesions.? Overlying soft tissues appear unremarkable.? ? IMPRESSION:? No acute cardiopulmonary abnormalities or focal airspace disease. ? Dictated by: Robert Ly M.D. on 12/28/2021 at 17:24 ? ? Approved by: Robert Ly M.D. on 12/28/2021 at 17:25 ? ECG Data Interpretation: Normal sinus rhythm no ST elevation depression rate 93 left bundle-branch block present. MDM Narrative Medical decision making narrative: Appropriate for transfer. For continue of care and possible heart catheterization later in the visit/tomorrow. Two sets of troponins completed. Chest pain and abdominal pain free. I did review with hand hose cutter and hospitalist. At [facility]. Patient agrees with treatment plan and transfer. Critical Care Time Critical Care Time Attestation: Critical Care Time 35 minutes: Critical care time is separate from other billable procedures. This critical care time includes consultation with family and other consulting doctors, review of records, and interpretation of data from labs, EKGs, imaging, etc. Discharge Plan Departure Patient Disposition: [facility] Clinical Impression: Unstable angina pectoris Prescriptions: No Action furosemide 20 mg tablet 20 mg PO QAM Qty: 90 2RF nitroglycerin 0.4 mg tablet, sublingual 0.4 mg buccal Q5-15M PRN (Reason: ACS) Qty: 30 2RF spironolactone 25 mg Tablet 25 mg PO QAM 0RF Entresto 24-26 mg tablet 1 tab PO BID 0RF Label Comments: TAKE 1 TABLET BY MOUTH TWICE DAILY WITH MEALS atorvastatin 80 mg tablet 80 mg PO BEDTIME 0RF clopidogrel 75 mg tablet 75 mg PO QAM 0RF aspirin 81 mg tablet,chewable 1 tab PO QAM 0RF metoprolol succinate 25 mg tablet extended release 24 hr 25 mg PO QAM 0RF Referrals: Can Meyer, [Primary Care Provider] -
[2021-12-28] MEDS: CLOPIDOGREL 75 MG TABLET 300 MG PO (19:31)
[2021-12-28] MEDS: HEPARIN 5,000 UNIT/ML VIAL 5800 UNIT IV (19:32)
[2021-12-28] MEDS: HEPARIN DRIP 25,000 UNIT/500 ML IV.SOLN 17.418 UNIT IV (19:42)
[2021-12-28 20:52] LABS: COVID19 -Nasal RAPID Negative (Negative)
--- NOTE | 2021-12-28 21:20 | PC.NURSE ---
Dr. Bush aware that Entresto is not formulary. Pt does not have her own with her. Dr. Bush states ok to skip.
[2021-12-28 21:38] LABS: Troponin I < 0.012 ng/mL (0.01-0.034)
[2021-12-28] MEDS: ATORVASTATIN 20 MG TABLET 80 MG PO (22:17)
[2021-12-29] VITALS (12 sets, daily range): BP systolic 116–137; BP diastolic 65–79; PULSE 69–126; RESP 15–54; O2SAT 92–97
[2021-12-29 02:00] LABS: PTT Partial Thromboplastin Tim 214 SECONDS (26.4-36.2)
== END 2021-12-29 02:31 | disposition short-term general hospital (02) ==
PROVIDERS: Emergency Medicine; Emergency Provider Emergency Medicine; PCP Family Medicine
DX: I20.0 Unstable angina (principal); F17.200 Nicotine dependence, unspecified, uncomplicated; Z20.822 Contact with and (suspected) exposure to COVID-19
CPT/HCPCS: 36415; 71045; 80053; 82550; 83690; 83735; 83880; 84484; 85025; 85610; 85730; 87635; 93005; 96365; 96366; 99284; 99291; C9803; J1644

== ENCOUNTER → 2022-05-04 15:47 | Outpatient (CLI) | payer OTHER, MEDICAID, SELFPAY ==
--- NOTE | 2022-05-04 | DI.ECHO.S_ITS ---
[place] [place] +---------+ Hospital +---------+ : : [address] : : : : [place] : : : : [address] : : : : Phone: [phone] : [phone] +---------+ Echocardiogram Report + + :Name: SUSANNAH ORO Study Date: 05/04/2022 Height: 61 in : :[facility] ReadingLocation: Weight: 165 lb : : Gender: Female BSA: 1.7 m2 : :: 1970 Age: 51 yrs BP: 121/83 mmHg: :Reason For Study: SYSTOLIC HEART FAILURE : :Ordering Physician: ALAN, : :MISSY Performed By: Sania Fink : :Referring: JUSTINO WHITMAN : + + Interpretation Summary The left ventricular cavity is small. There is mild concentric left ventricular hypertrophy. The ejection fraction is estimated to be 45-50%. Previously LV EF 10 to 15%. Left ventricular systolic function has significantly improved compared to the previous exam. There is a hypokinesis of basal inferior wall and basal inferior septum. Overall global hypokinesis significantly improved. The right ventricle is normal size. Visually RV systolic function appears to be preserved. It has improved from the previous study. There is a pacemaker lead in the right ventricle. Pacemaker lead is new. There is mild aortic regurgitation. Compared to the prior echo study, there has been no change in the severity of aortic regurgitation. There is mild tricuspid regurgitation. Compared to the prior echo exam, there has been a decrease in TR severity. The right ventricular systolic pressure is estimated to be at least 24 mmHg based on an estimated right atrial pressure of 3 mm Hg. Previously 41 mmHg. Compared to the prior echo exam, there has been a decrease in the severity of pulmonary hypertension. Procedure: A two-dimensional transthoracic echocardiogram with color flow and Doppler was performed. Comparison is made with the echocardiogram of 03/19/2020. The heart rate ranged between 60-67 bpm during the study. The patient was in normal sinus rhythm during the exam. The patient had a bundle branch block rhythm during the exam. Left Ventricle: There is mild concentric left ventricular hypertrophy. The left ventricular cavity is small. There is no thrombus. The ejection fraction is estimated to be 45-50%. Left ventricular systolic function has significantly improved compared to the previous exam. There is a hypokinesis of basal inferior wall and basal inferior septum. Overall global hypokinesis significantly improved. MV E/A: 0.55 Med Peak E' Rinku: 3.1 cm/sec E/E' med: 17.4. Right Ventricle: The right ventricle is normal size. There is a pacemaker lead in the right ventricle. Visually RV systolic function appears to be preserved. It has improved from the previous study. Atria: The left atrial size is normal. The left atrium has mildly decreased in size since the prior echo exam. Right atrial size is normal. There is no Doppler evidence for an interatrial shunt. Mitral Valve: There is mild mitral annular calcification. There is trace mitral regurgitation. Compared to the prior echo study, there has been a decrease in the severity of mitral regurgitation. Aortic Valve: The aortic valve is trileaflet. The aortic valve opens well. There is no aortic valve stenosis. There is mild aortic regurgitation. Compared to the prior echo study, there has been no change in the severity of aortic regurgitation. Tricuspid Valve: The tricuspid valve is normal. There is mild tricuspid regurgitation. The right ventricular systolic pressure is estimated to be at least 24 mmHg based on an estimated right atrial pressure of 3 mm Hg. Compared to the prior echo exam, there has been a decrease in TR severity. Compared to the prior echo exam, there has been a decrease in the severity of pulmonary hypertension. Pulmonic Valve: The pulmonic valve leaflets are thin and pliable; valve motion is normal. There is no pulmonic valvular regurgitation. Great Vessels: The aortic root is normal size. The ascending aorta could not be visualized. The IVC is of normal diameter and collapses greater than 50% with a sniff. This suggests a low right atrial pressure of 3 mm Hg. Pericardium/ Pleura There is no pericardial effusion. There is an anterior echo-free space consistent with a fat pad. There is no pleural effusion. MMode/2D Measurements & Calculations LVIDd: 3.7 cm LVOT diam: 2.0 cm LVIDs: 2.7 cm Ao root diam: 3.1 cm FS: 25.4 % Ao Arch Diam (Prox Trans): 2.7 cm IVSd: 1.1 cm LVPWd: 1.2 cm LV vicente. diameter/BSA (cm/m^2): 2.1 LV sys. diameter/BSA (cm/m^2): 1.6 LA A2 area: 14.4 cm2 RA long axis: 4.2 cm LA A4 area: 9.3 cm2 RA area: 10.8 cm2 LA length (vol): 3.8 cm RA vol: 23.5 ml LA vol: 29.7 ml RA : 13.5 ml/m2 LA vol index: 17.1 ml/m2 IVC diam: 1.0 cm RVD1 (basal): 3.0 cm RVD2 (mid): 2.5 cm TAPSE: 1.6 cm Doppler Measurements & Calculations Ao V2 max: 129.6 cm/sec LVOT Max Rinku: 81.7 cm/sec Ao V2 mean: 84.8 cm/sec LV V1 max P.7 mmHg Ao max P.7 mmHg LV V1 VTI: 15.3 cm Ao mean P.4 mmHg LAW(I,D): 2.2 cm2 Ao V2 VTI: 21.6 cm LAW(V,D): 2.0 cm2 sev ratio: 0.71 LAW indexed to BSA (cm^2/m^2): 1.3 MV E max rinku: 54.5 cm/sec TR max rinku: 229.4 cm/sec MV A max rinku: 98.7 cm/sec TR max P.0 mmHg MV E/A: 0.55 PA V2 max: 85.5 cm/sec Med Peak E' Rinku: 3.1 cm/sec PA V2 mean: 58.8 cm/sec E/E' med: 17.4 PA mean P.6 mmHg Lat Peak E' Rinku: 3.4 cm/sec PA pr(Accel): 32.8 mmHg E/E' lat: 16.0 E/e' average: 16.7 MV dec time: 0.35 sec SV(LVOT): 48.4 ml Reading Physician:05:26 PM
== END ==
PROVIDERS: PCP Family Medicine; Referring Provider Nurse Practitioner Acute Care; Visit Provider Nurse Practitioner Acute Care
DX: I08.2 Rheumatic disorders of both aortic and tricuspid valves (principal); I50.22 Chronic systolic (congestive) heart failure; Z95.0 Presence of cardiac pacemaker
CPT/HCPCS: 93306

== ENCOUNTER → 2022-05-18 13:17 | Outpatient (CLI) | payer OTHER, MEDICAID, SELFPAY ==
[2022-05-18 14:46] LABS: Blood Urea Nitrogen 16 mg/dL (7-17); Calcium 8.9 mg/dL (8.4-10.2); Carbon Dioxide 20 mmol/L (22-32); Chloride 110 mmol/L (98-107); Estimated Glomerular Filt Rate > 60 mL/min (>60); Glucose 104 mg/dL (70-100); HEMOLYSIS < 15 (0-50); Magnesium 1.9 mg/dL (1.6-2.3); Potassium 4.7 mmol/L (3.4-5.1); Sodium 137 mmol/L (137-145)
[2022-05-18 15:03] LABS: Free T4, Direct Thyroxine 0.84 ng/dL (0.78-2.19)
[2022-05-18 15:17] LABS: Thyroid Stimulating Hormone 1.58 uIU/mL (0.47-4.68)
== END ==
PROVIDERS: PCP Family Medicine; Referring Provider Internal Medicine Cardiovascular Disease; Visit Provider Internal Medicine Cardiovascular Disease
DX: I25.5 Ischemic cardiomyopathy (principal); I50.22 Chronic systolic (congestive) heart failure; Z95.810 Presence of automatic (implantable) cardiac defibrillator
CPT/HCPCS: 36415; 80048; 83735; 84439; 84443

== ENCOUNTER → 2022-06-15 17:07 | Outpatient (CLI) | payer OTHER, MEDICAID, SELFPAY ==
[2022-06-15 18:19] LABS: BUN Creatinine Ratio 23.2 (6-22); Blood Urea Nitrogen 22 mg/dL (7-17); Calcium 9.7 mg/dL (8.4-10.2); Carbon Dioxide 22 mmol/L (22-32); Chloride 108 mmol/L (98-107); Estimated Glomerular Filt Rate > 60 mL/min (>60); Glucose 111 mg/dL (70-100); HEMOLYSIS 29 (0-50); Potassium 5.1 mmol/L (3.4-5.1); Sodium 138 mmol/L (137-145)
== END ==
PROVIDERS: PCP Family Medicine; Referring Provider Internal Medicine Cardiovascular Disease; Visit Provider Internal Medicine Cardiovascular Disease
DX: I50.22 Chronic systolic (congestive) heart failure (principal)
CPT/HCPCS: 36415; 80048

== ENCOUNTER → 2022-08-07 17:23 | Outpatient (CLI) | payer OTHER, MEDICAID, SELFPAY ==
[2022-08-07 18:05] LABS: BUN Creatinine Ratio 22.5 (6-22); Blood Urea Nitrogen 18 mg/dL (7-17); Calcium 9.3 mg/dL (8.4-10.2); Carbon Dioxide 19 mmol/L (22-32); Chloride 110 mmol/L (98-107); Estimated Glomerular Filt Rate > 60 mL/min (>60); Glucose 117 mg/dL (70-100); HEMOLYSIS < 15 (0-50); Magnesium 1.8 mg/dL (1.6-2.3); Potassium 4.6 mmol/L (3.4-5.1); Sodium 141 mmol/L (137-145)
[2022-08-07 18:23] LABS: Free T4, Direct Thyroxine 0.82 ng/dL (0.78-2.19)
[2022-08-07 18:37] LABS: Thyroid Stimulating Hormone 1.96 uIU/mL (0.47-4.68)
== END ==
PROVIDERS: PCP Family Medicine; Referring Provider Internal Medicine Cardiovascular Disease; Visit Provider Internal Medicine Cardiovascular Disease
DX: I25.5 Ischemic cardiomyopathy (principal); I50.22 Chronic systolic (congestive) heart failure; Z95.810 Presence of automatic (implantable) cardiac defibrillator
CPT/HCPCS: 36415; 80048; 83735; 84439; 84443

== ENCOUNTER → 2022-09-12 09:41 | Outpatient (CLI) | payer OTHER, MEDICAID, SELFPAY ==
[2022-09-12 12:45] LABS: BUN Creatinine Ratio 26.9 (6-22); Blood Urea Nitrogen 18 mg/dL (7-17); Calcium 9.2 mg/dL (8.4-10.2); Carbon Dioxide 22 mmol/L (22-32); Chloride 107 mmol/L (98-107); Cholesterol 152 mg/dL (140-199); Estimated Glomerular Filt Rate > 60 mL/min (>60); Glucose 85 mg/dL (70-100); HDL Cholesterol 41 mg/dL (40-60); HEMOLYSIS < 15 (0-50); LDL Cholesterol Calculated 76 mg/dL (<100); Potassium 4.6 mmol/L (3.4-5.1); Sodium 140 mmol/L (137-145); Triglycerides 177 mg/dL (35-150)
== END ==
PROVIDERS: PCP Family Medicine; Referring Provider Internal Medicine Cardiovascular Disease; Visit Provider Internal Medicine Cardiovascular Disease
DX: E78.5 Hyperlipidemia, unspecified (principal)
CPT/HCPCS: 36415; 80048; 80061

== ENCOUNTER → 2022-12-19 09:03 | Outpatient (CLI) | payer OTHER, MEDICAID, SELFPAY ==
[2022-12-19 11:04] LABS: Alanine Aminotransferase 23 IU/L (<35); Albumin 4.1 g/dL (3.5-5.0); Albumin Globulin Ratio 1.2 (1.0-2.8); Alkaline Phosphatase 81 U/L (38-126); Aspartate Aminotransferase 26 IU/L (14-36); BUN Creatinine Ratio 30.7 (6-22); Bilirubin Total 0.4 mg/dL (0.2-1.3); Blood Urea Nitrogen 23 mg/dL (7-17); Calcium 9.4 mg/dL (8.4-10.2); Carbon Dioxide 20 mmol/L (22-32); Chloride 108 mmol/L (98-107); Cholesterol 154 mg/dL (140-199); Estimated Glomerular Filt Rate > 60 mL/min (>60); Globulin 3.3 g/dL (1.7-4.1); Glucose 85 mg/dL (70-100); HDL Cholesterol 43 mg/dL (40-60); HEMOLYSIS < 15 (0-50); LDL Cholesterol Calculated 74 mg/dL (<100); Potassium 5.3 mmol/L (3.4-5.1); Sodium 140 mmol/L (137-145); Total Protein 7.4 g/dL (6.3-8.2); Triglycerides 183 mg/dL (35-150)
== END ==
PROVIDERS: PCP Family Medicine; Referring Provider Internal Medicine Cardiovascular Disease; Visit Provider Internal Medicine Cardiovascular Disease
DX: E78.5 Hyperlipidemia, unspecified (principal)
CPT/HCPCS: 36415; 80053; 80061

== ENCOUNTER → 2022-12-27 08:42 | Outpatient (CLI) | payer OTHER, MEDICAID, SELFPAY ==
[2022-12-27 13:03] LABS: BUN Creatinine Ratio 34.7 (6-22); Blood Urea Nitrogen 26 mg/dL (7-17); Calcium 8.9 mg/dL (8.4-10.2); Carbon Dioxide 17 mmol/L (22-32); Chloride 109 mmol/L (98-107); Estimated Glomerular Filt Rate > 60 mL/min (>60); Glucose 84 mg/dL (70-100); HEMOLYSIS 49 (0-50); Potassium 5.3 mmol/L (3.4-5.1); Sodium 138 mmol/L (137-145)
== END ==
PROVIDERS: PCP Family Medicine; Referring Provider Internal Medicine Cardiovascular Disease; Visit Provider Internal Medicine Cardiovascular Disease
DX: I42.0 Dilated cardiomyopathy (principal)
CPT/HCPCS: 36415; 80048

== ENCOUNTER → 2023-01-04 10:02 | Outpatient (CLI) | payer OTHER, MEDICAID, SELFPAY ==
[2023-01-04 11:18] LABS: BUN Creatinine Ratio 30.1 (6-22); Blood Urea Nitrogen 25 mg/dL (7-17); Carbon Dioxide 18 mmol/L (22-32); Chloride 108 mmol/L (98-107); Estimated Glomerular Filt Rate > 60 mL/min (>60); Glucose 133 mg/dL (70-100); HEMOLYSIS < 15 (0-50); Potassium 4.4 mmol/L (3.4-5.1); Sodium 137 mmol/L (137-145)
== END ==
PROVIDERS: PCP Family Medicine; Referring Provider Internal Medicine Cardiovascular Disease; Visit Provider Internal Medicine Cardiovascular Disease
DX: E87.5 Hyperkalemia (principal)
CPT/HCPCS: 36415; 80048

== ENCOUNTER → 2023-02-07 08:00 | Outpatient (CLI) | payer OTHER, MEDICAID, SELFPAY ==
[2023-02-07 08:24] LABS: Add Manual Diff / Slide Review NO; Basophils Absolute Auto 200 /uL (0-100); Basophils Percent Auto 1.4 % (0-2); Eosinophils Absolute Auto 200 /uL (0-450); Eosinophils Percent Auto 1.5 % (2-4); Hemoglobin 13.8 g/dL (12.0-16.0); Lymphocytes Absolute Auto 5000 /uL (1100-4500); Lymphocytes Percent Auto 47.3 % (25-40); Mean Corpuscular HGB Conc 33.7 % (30-36); Mean Corpuscular Hemoglobin 34.5 PG (26-34); Mean Corpuscular Volume 102.1 fL (80-100); Monocytes Absolute Auto 1100 /uL (0-900); Monocytes Percent Auto 10.7 % (3-14); Neutrophils Absolute Auto 4200 /uL (1500-7000); Neutrophils Percent Auto 39.1 % (50-75); Platelet Count 321 X10^3/uL (150-400); Red Blood Cell Count 4.02 X10^6/uL (4.0-5.2); Red Cell Distribution Width 13.4 % (11.6-14.8); White Blood Cell Count 10.6 X10^3/uL (4.5-11.0)
[2023-02-07 08:39] LABS: Alanine Aminotransferase 23 IU/L (<35); Albumin 3.4 g/dL (3.5-5.0); Albumin Globulin Ratio 1.1 (1.0-2.8); Alkaline Phosphatase 67 U/L (38-126); Aspartate Aminotransferase 24 IU/L (14-36); BUN Creatinine Ratio 26.1 (6-22); Bilirubin Total 0.2 mg/dL (0.2-1.3); Blood Urea Nitrogen 18 mg/dL (7-17); Calcium 9.2 mg/dL (8.4-10.2); Carbon Dioxide 22 mmol/L (22-32); Chloride 109 mmol/L (98-107); Cholesterol 127 mg/dL (140-199); Estimated Glomerular Filt Rate > 60 mL/min (>60); Glucose 83 mg/dL (70-100); HDL Cholesterol 42 mg/dL (40-60); HEMOLYSIS < 15 (0-50); LDL Cholesterol Calculated 52 mg/dL (<100); Potassium 4.7 mmol/L (3.4-5.1); Sodium 137 mmol/L (137-145); Total Protein 6.4 g/dL (6.3-8.2); Triglycerides 167 mg/dL (35-150)
[2023-02-07 08:48] LABS: NT-proBNP (BNP-Adult 18+) 896 pg/mL (<125)
[2023-02-07 09:09] LABS: TSH w/ Reflex to FT4 2.47 uIU/mL (0.47-4.68)
== END ==
PROVIDERS: PCP Family Medicine; Referring Provider Family Medicine; Visit Provider Family Medicine
DX: E78.5 Hyperlipidemia, unspecified (principal); I25.10 Atherosclerotic heart disease of native coronary artery without angina pectoris; I50.9 Heart failure, unspecified
CPT/HCPCS: 36415; 80053; 80061; 83880; 84443; 85025

== ENCOUNTER → 2023-06-29 15:50 | Outpatient (CLI) | payer OTHER, MEDICAID, SELFPAY ==
[2023-06-29 17:22] LABS: Add Manual Diff / Slide Review NO; Basophils Absolute Auto 100 /uL (0-100); Basophils Percent Auto 0.8 % (0-2); Eosinophils Absolute Auto 100 /uL (0-450); Eosinophils Percent Auto 0.7 % (2-4); Hematocrit 41.1 % (36-46); Hemoglobin 13.9 g/dL (12.0-16.0); Lymphocytes Absolute Auto 2700 /uL (1100-4500); Lymphocytes Percent Auto 27.1 % (25-40); Mean Corpuscular HGB Conc 33.9 % (30-36); Mean Corpuscular Hemoglobin 34.1 PG (26-34); Mean Corpuscular Volume 100.6 fL (80-100); Monocytes Absolute Auto 1100 /uL (0-900); Monocytes Percent Auto 10.8 % (3-14); Neutrophils Absolute Auto 6000 /uL (1500-7000); Neutrophils Percent Auto 60.6 % (50-75); Platelet Count 363 X10^3/uL (150-400); Red Blood Cell Count 4.09 X10^6/uL (4.0-5.2); Red Cell Distribution Width 15.1 % (11.6-14.8)
[2023-06-29 17:48] LABS: BUN Creatinine Ratio 20.3 (6-22); Blood Urea Nitrogen 16 mg/dL (7-17); Calcium 9.4 mg/dL (8.4-10.2); Carbon Dioxide 19 mmol/L (22-32); Chloride 108 mmol/L (98-107); Estimated Glomerular Filt Rate > 60 mL/min (>60); Glucose 103 mg/dL (70-100); HEMOLYSIS < 15 (0-50); Magnesium 1.9 mg/dL (1.6-2.3); Potassium 3.9 mmol/L (3.4-5.1); Sodium 137 mmol/L (137-145)
== END ==
PROVIDERS: PCP Family Medicine; Referring Provider Nurse Practitioner; Visit Provider Nurse Practitioner
DX: I47.1 Supraventricular tachycardia (principal); I25.5 Ischemic cardiomyopathy; I47.29 Other ventricular tachycardia
CPT/HCPCS: 36415; 80048; 83735; 84439; 84443; 85025

== ENCOUNTER → 2025-07-27 15:58 | Outpatient (CLI) | payer OTHER, SELFPAY ==
[2025-07-27 16:55] LABS: Hemoglobin A1C% w Est Avg Glu 5.9 % (4.0-6.0)
[2025-07-27 17:08] LABS: Alanine Aminotransferase 29 IU/L (<35); Albumin 4.1 g/dL (3.5-5.0); Albumin Globulin Ratio 1.2 (1.0-2.8); Alkaline Phosphatase 74 U/L (38-126); Blood Urea Nitrogen 24 mg/dL (7-17); Calcium 9.8 mg/dL (8.4-10.2); Carbon Dioxide 25 mmol/L (22-32); Chloride 104 mmol/L (98-107); Cholesterol 158 mg/dL (140-199); Estimated Glomerular Filt Rate > 60 mL/min (>60); Globulin 3.3 g/dL (1.7-4.1); Glucose 89 mg/dL (70-99); HDL Cholesterol 57 mg/dL (40-60); HEMOLYSIS 24 (0-50); Potassium 5.1 mmol/L (3.4-5.1); Sodium 135 mmol/L (137-145); Total Protein 7.4 g/dL (6.3-8.2); Triglycerides 276 mg/dL (35-150)
[2025-07-27 17:37] LABS: TSH w/ Reflex to FT4 1.56 uIU/mL (0.47-4.68)
== END ==
PROVIDERS: PCP Family Medicine; Referring Provider Internal Medicine Cardiovascular Disease; Visit Provider Internal Medicine Cardiovascular Disease
DX: I25.5 Ischemic cardiomyopathy (principal); I50.9 Heart failure, unspecified; E78.5 Hyperlipidemia, unspecified; I25.10 Atherosclerotic heart disease of native coronary artery without angina pectoris; R73.9 Hyperglycemia, unspecified
CPT/HCPCS: 80053; 80061; 83036; 84443